=== PATIENT | female | born 1965 | race Caucasian/White ===

== ENCOUNTER 2016-12-07 19:22 | Emergency (ER) | payer OTHER, MEDICARE ==
[~2016-12-07] VITALS: Ht 170.2 cm; Wt 77.1 kg
[~2016-12-07 19:22] MED LIST: BENTYL10 MG PO; CLONAZEPAM2 MG PO; CYCLOBENZAPRINE10 M2 PO; DILAUDID2 M1 PO; DULOXETINE60 MG PO; ESTRADIOL1 MG PO; HYDROMORPHONE HC4 MG PO; MIRALAX17 GM PO; NEXIUM40 M1 PO; ONDANSETRON4 MG PO; PERCOCET 325 MG1 TA2 PO; PERCOCET 325 MG1 TAB PO; PRENATAL PO; REGLAN10 M1 PO; ZALEPLON10 MG PO; ZOFRAN 4 MG TABL4 MG PO; ZOFRAN4 M1 PO; phenergan PO
--- NOTE | 2016-12-07 20:08 | ED GI/GU/ABDOMINAL COMPLAINT ---
History of Present Illness General Chief Complaint: Abdominal Pain/Flank Pain Stated Complaint: ABD PAIN, DISTENTION, +N/V, -BM X3DAYS Source: patient Exam Limitations: no limitations Vital Signs & Intake/Output Vital Signs & Intake/Output Vital Signs Date Time Temp Pulse Resp B/P Pulse O2 O2 Flow FiO2 Ox Delivery Rate 12/07 2145 96.8 87 18 114/76 98 Room Air 12/08 1943 97.2 110 18 158/106 97 Room Air Allergies Coded Allergies: Iodinated Contrast Media - Oral and (IODINATED CONTRAST MEDIA - IV DYE) ( ANAPHYLAXIS 11/24/15) Iodine and Iodide Containing Produc (ANAPHYLAXIS 11/24/15) latex (CAUSED SCAR TISSUE INTERNAL FROM MD USE OF LATEX GLOVES 11/24/15) morphine (HALLUCINATIONS 11/24/15) shellfish derived (ANAPHYLAXIS 11/24/15) Uncoded Allergies: ANTIHISTAMINES (PT REPORTS INTERACTS WITH KLONOPIN; CAUSES SEVERE ANXIETY ) Reconcile Medications Clonazepam 2 MG TABLET 2-3 TAB PO TID anxiety (Reported) 2mg bid and 3mg at bedtime Dicyclomine Hydrochloride (Bentyl) 10 MG CAP 1 TAB PO TID ABD PAIN (Reported) DULOXETINE HCL (Duloxetine) 60 MG CAPSULE.DR 1 TAB PO DAILY DEPRESSION ( Reported) Esomeprazole (Nexium) 40 MG CAPSULE.DR 1 CAP PO DAILY GI (Reported) Estradiol 1 MG TAB 1 MG PO DAILY ESTROGEN REPLACEMENT (Reported) Hydromorphone Hydrochloride (Hydromorphone HCl) 4 MG TAB 4 MG PO Q6H PAIN ( Reported) Metoclopramide HCl (Reglan) 10 MG TABLET 1 TAB PO 4 TIMES/DAY PRN NAUSEA 30 minutes before meals and bedtime ONDANSETRON HCL (Ondansetron HCl) 4 MG TABLET 1 TAB PO Q8H N/V (Reported) Peg 3350/Na Sulf,Bicarb,Cl/KCl (Golytely Solution) 236-22.74G SOLN.RECON 1 BOT PO X1 CONSTIPATION Polyethylene Glycol 3350 (Miralax) 17 GRAM/DOSE POWDER 17 GM PO DAILY STOOL SOFTENER (Reported) mix with water, juice, soda, coffee or tea Promethazine HCl 25 MG TABLET 1 TAB PO Q6P PRN NAUSEA, VOMITING Zaleplon 10 MG CAPSULE 1 TAB PO QPM INSOMMIA (Reported) Triage Note: RECEIVED 51 YO FEMALE WITH HX OF MULTIPLE ABDOMINAL SURGURIES, BOWEL OBSTRUCTIONS, C/O ABDOMINAL DISTENTION X 3 DAYS, NOT PASSING GAS, NAUSEA, VOMITING, ABDOMINAL PAIN. Triage Nurses Notes Reviewed? yes ? N Is pt currently ? No Onset: Gradual Duration: day(s): Timing: recent history Quality/Severity: cramping Location: generalized abdomen Radiation: no radiation Activities at Onset: none Prior Abdominal Problems: similar symptoms Modifying Factors: Worsens With: vomiting. Associated Symptoms: abdominal pain HPI: 51 yo woman h/o ileus, obstruction, h/o prior abdominal surgery, presents with 3 days of abdominal distension, vomiting, nausea. She notes that it feels similar to her prior episodes of obstruction. Last bowel movement 3 days ago. She reports, "I've been dry heaving all day." No fever, chills, dyspnea, chest pain. Past History Travel History Traveled to [place] past 21 day No Medical History Any Pertinent Medical History? 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 No Review of Systems Review of Systems Constitutional: Reports: no symptoms. EENTM: Reports: no symptoms. Respiratory: Reports: no symptoms. Cardiovascular: Reports: no symptoms. GI: Reports: no symptoms. Genitourinary: Reports: no symptoms. Musculoskeletal: Reports: no symptoms. Skin: Reports: no symptoms. Neurological/Psychological: Reports: no symptoms. Hematologic/Endocrine: Reports: no symptoms. Immunologic/Allergic: Reports: no symptoms. All Other Systems: Reviewed and Negative Physical Exam Physical Exam General Appearance: well developed/nourished, moderate distress Head: atraumatic, normal appearance Eyes: Bilateral: normal appearance. Ears, Nose, Throat, Mouth: hearing grossly normal Neck: normal inspection, supple Respiratory: normal breath sounds, chest non-tender, no respiratory distress Cardiovascular: regular rate/rhythm Gastrointestinal: distension, decreased bowel sounds. diffuse tenderness. Back: normal inspection Extremities: normal range of motion Neurologic/Psych: no motor/sensory deficits, awake, alert, oriented x 3 Skin: intact, normal color, warm/dry Core Measures ACS in differential dx? No Severe Sepsis Present: No Septic Shock Present: No Progress Differential Diagnosis: biliary colic, bowel obstruction, diverticulitis Plan of Care: Orders Procedure Date/time Status URINALYSIS 12/07 1936 Complete TROPONIN LEVEL 12/07 1936 Complete LIPASE 12/07 1936 Complete HEPATIC FUNCTION PANEL 12/07 1936 Complete CBC WITHOUT DIFFERENTIAL 12/07 1936 Complete BASIC METABOLIC PANEL 12/07 1936 Complete AMYLASE 12/07 1936 Complete EKG 12/07 1936 Active Current Medications Sig/Brittany Start time Last Medication Dose Stop Time Status Admin Oxycodone/ 2 TAB ONCE ONE 12/07 2244 UNVr Acetaminophen 12/07 2245 (Percocet) Laboratory Tests 12/07/165: Urine Color YEL, Urine Clarity CLEAR, Urine pH 6.0, Ur Specific [place] 1.015, Urine Protein NEG, Urine Ketones NEG, Urine Nitrite NEG, Urine Bilirubin NEG, Urine Urobilinogen 0.2, Ur Leukocyte Esterase TRACE H, Ur Microscopic SEDIMENT EXAMINED, Urine RBC RARE, Urine WBC 3-5 H, Ur Epithelial Cells FEW, Urine Bacteria FEW H, Urine Hemoglobin NEG, Urine Glucose NEG 12/07/16 2020: Anion Gap 12, Estimated GFR > 60, BUN/Creatinine Ratio 28.6 H, Glucose 125 H, Calcium 9.7, Total Bilirubin 0.5, Direct Bilirubin 0.4, AST 124 H, ALT 178 H, Alkaline Phosphatase 148 H, Troponin I < 0.01, Total Protein 7.6, Albumin 4.2, Amylase 82, Lipase 126, CBC w Diff NO MAN DIFF REQ, RBC 4.82, MCV 90.2, MCH 30.8 , RDW 13.5, MPV 8.5, Gran % 56.8, Lymphocytes % 34.2, Monocytes % 5.0, Eosinophils % 1.7, Basophils % 2.3 H, Absolute Granulocytes 6.1, Absolute Lymphocytes 3.7 H, Absolute Monocytes 0.5, Absolute Eosinophils 0.2, Absolute Basophils 0.3, PUBS MCHC 34.2 Diagnostic Imaging: Viewed by Me: CT Scan. Discussed w/RAD: CT Scan. Radiology Impression: abd/pelvic ct... large volume of stool throughout colon Initial ED EKG: normal axis, normal intervals, normal p-waves, normal QRS complex, normal sinus rhythm Comments: PATIENT: CHONG JAIN PRESENT AGE: 51 PATIENT ACCOUNT NO: [id number] : 67 LOCATION: [facility] ORDERING PHYSICIAN: SHERICE CARDENAS MD SERVICE DATE: 12/07/16 EXAM TYPE: CAT - CT ABD & PELVIS W/O IV CONTRAS EXAMINATION: CT ABDOMEN AND PELVIS WITHOUT CONTRAST CLINICAL INFORMATION: Abdominal pain. Abdominal distention. Concern for obstruction. COMPARISON: CT abdomen and pelvis 12/09/2015 TECHNIQUE: Multidetector volumetric imaging was performed from the superior aspect of the liver through the pubic symphysis. Sagittal and coronal reformatted images were obtained on the technologist's workstation. DLP: 761.96 mGy-cm FINDINGS: LUNG BASES: The visualized lung bases are unremarkable. LIVER, GALLBLADDER, AND BILIARY TREE: The liver is normal in size, shape, and attenuation. No focal hepatic lesion or biliary ductal dilatation is present. The gallbladder is unremarkable with no evidence of radiopaque gallstones, gallbladder wall thickening, or obvious pericholecystic inflammatory changes. PANCREAS: Unremarkable. SPLEEN: Unremarkable. ADRENAL GLANDS: Unremarkable. KIDNEYS AND URETERS: The kidneys are normal in size, shape, and attenuation. No hydronephrosis, hydroureter, or calculi seen. No perinephric stranding. BLADDER: Unremarkable. GASTROINTESTINAL TRACT: Surgical suture line of mid small bowel loops. No dilated bowel loop. No evidence of obstruction. Large volume of stool throughout the colon from cecum through pelvis. No bowel wall thickening or edema. ABDOMINAL WALL: Small fat-containing umbilical hernia LYMPH NODES: Normal. VASCULAR: Scattered vascular calcifications of aorta and iliac vessels without aneurysm PELVIC VISCERA: Uterus is absent. Surgical clips along the pelvic sidewall bilateral. No adnexal abnormality. OSSEOUS STRUCTURES: Unremarkable. IMPRESSION: No acute abnormality CT scan abdomen pelvis. No bowel obstruction. Large volume of stool throughout colon. DICTATED BY: LOU RAYMUNDO MD DATE/TIME DICTATED:12/07/162156 AUTOMATION QA LEAD:NIKKIE DATE/TIME TRANSCRIBED:12/07/162156 CONFIDENTIAL, DO NOT COPY WITHOUT APPROPRIATE AUTHORIZATION. <Electronically signed in Other Vendor System> SIGNED BY: LOU RAYMUNDO MD 12/07/16 4129 Departure Departure Disposition: HOME OR SELF CARE Condition: Stable Clinical Impression Primary Impression: Constipation Referrals: GEORGIANA HERNANDEZ,MAGGIE Fritz (PCP/Family) Departure Forms: Customer Survey General Discharge Information Prescriptions: Current Visit Scripts Peg 3350/Na Sulf,Bicarb,Cl/KCl (Golytely Solution) 1 BOT PO X1 #1 BOT Promethazine HCl 1 TAB PO Q6P PRN NAUSEA, VOMITING #30 TAB Ref 1 Comments 12/07/16, 22:47.... discussed at length... ct scan consistent with constipation. no sign of obstruction... likely distension due to lactulose... discussed d/cing lactulose, will give golytely for bowel cleanout. close follow up advised.
[2016-12-07 20:34] LABS: ABSOLUTE BASOPHIL COUNT 0.3 /CUMM (0.0-0.2); ABSOLUTE EOSINOPHIL COUNT 0.2 /CUMM (0.0-0.7); ABSOLUTE GRANULOCYTE CT 6.1 /CUMM (1.4-6.5); ABSOLUTE LYMPH COUNT 3.7 /CUMM (1.2-3.4); ABSOLUTE MONOCYTE COUNT 0.5 /CUMM (0.10-0.60); BASOPHIL % 2.3 % (0.0-2.0); EOSINOPHIL % 1.7 % (0-5); GRANULOCYTE % 56.8 % (42.2-75.2); HEMATOCRIT 43.5 % (37-47); MEAN CORPUSCULAR HGB 30.8 PG (27.0-31.0); MEAN CORPUSCULAR HGB CONC 34.2 G/DL (33.0-37.0); MEAN CORPUSCULAR VOLUME 90.2 FL (81.0-99.0); MEAN PLATELET VOLUME 8.5 FL (7.4-10.4); PLATELET COUNT 292 /CUMM (130-400); RBC DISTRIBUTION WIDTH 13.5 % (11.5-14.5); RED BLOOD CELL CT 4.82 /CUMM (4.20-5.40); WHITE BLOOD CELL COUNT 10.8 /CUMM (4.8-10.8)
--- NOTE | 2016-12-07 22:12 | CT SCAN REPORT ---
EXAMINATION: CT ABDOMEN AND PELVIS WITHOUT CONTRAST CLINICAL INFORMATION: Abdominal pain. Abdominal distention. Concern for obstruction. COMPARISON: CT abdomen and pelvis 12/09/2015 TECHNIQUE: Multidetector volumetric imaging was performed from the superior aspect of the liver through the pubic symphysis. Sagittal and coronal reformatted images were obtained on the technologist's workstation. DLP: 761.96 mGy-cm FINDINGS: LUNG BASES: The visualized lung bases are unremarkable. LIVER, GALLBLADDER, AND BILIARY TREE: The liver is normal in size, shape, and attenuation. No focal hepatic lesion or biliary ductal dilatation is present. The gallbladder is unremarkable with no evidence of radiopaque gallstones, gallbladder wall thickening, or obvious pericholecystic inflammatory changes. PANCREAS: Unremarkable. SPLEEN: Unremarkable. ADRENAL GLANDS: Unremarkable. KIDNEYS AND URETERS: The kidneys are normal in size, shape, and attenuation. No hydronephrosis, hydroureter, or calculi seen. No perinephric stranding. BLADDER: Unremarkable. GASTROINTESTINAL TRACT: Surgical suture line of mid small bowel loops. No dilated bowel loop. No evidence of obstruction. Large volume of stool throughout the colon from cecum through pelvis. No bowel wall thickening or edema. ABDOMINAL WALL: Small fat-containing umbilical hernia LYMPH NODES: Normal. VASCULAR: Scattered vascular calcifications of aorta and iliac vessels without aneurysm PELVIC VISCERA: Uterus is absent. Surgical clips along the pelvic sidewall bilateral. No adnexal abnormality. OSSEOUS STRUCTURES: Unremarkable. IMPRESSION: No acute abnormality CT scan abdomen pelvis. No bowel obstruction. Large volume of stool throughout colon.
[2016-12-07] MEDS ORDERED: PROMETHAZINE HC25 M3 PO (22:46)
[2016-12-07] MEDS ORDERED: GOLYTELY SOLU4000 ML PO (22:46)
[2016-12-07 22:51] VITALS: BP 112/67
== END 2016-12-07 22:57 ==
LOC: ERH 19:22
PROVIDERS: Pediatrics
DX: K59.00 Constipation, unspecified (principal)
CPT/HCPCS: 74176; 81001; 93005; 93010; 96361; 96374; 96375; J2405

== ENCOUNTER 2016-12-30 20:44 | Emergency (ER) | payer OTHER, MEDICARE ==
[~2016-12-30] VITALS: Ht 167.6 cm; Wt 77.1 kg
[~2016-12-30 20:44] MED LIST changes: +GOLYTELY SOLU4000 ML PO; +PROMETHAZINE HC25 M3 PO
--- NOTE | 2016-12-30 21:03 | ED GI/GU/ABDOMINAL COMPLAINT ---
History of Present Illness General Chief Complaint: Abdominal Pain/Flank Pain Stated Complaint: ABD PAIN, N/V/D Source: patient Exam Limitations: no limitations Vital Signs & Intake/Output Vital Signs & Intake/Output Vital Signs Date Time Temp Pulse Resp B/P B/P Pulse O2 O2 Flow FiO2 Mean Ox Delivery Rate 12/30 2046 96.0 94 18 118/65 100 Room Air ED Intake and Output 12/31 0000 12/30 1200 Intake Total 1000 Output Total Balance 1000 Intake, IV 1000 Patient 170 lb Weight Weight Reported by Patient Measurement Method Allergies Coded Allergies: Iodinated Contrast Media - Oral and (IODINATED CONTRAST MEDIA - IV DYE) ( ANAPHYLAXIS 11/24/15) Iodine and Iodide Containing Produc (ANAPHYLAXIS 11/24/15) latex (CAUSED SCAR TISSUE INTERNAL FROM MD USE OF LATEX GLOVES 11/24/15) morphine (HALLUCINATIONS 11/24/15) shellfish derived (ANAPHYLAXIS 11/24/15) Uncoded Allergies: ANTIHISTAMINES (PT REPORTS INTERACTS WITH KLONOPIN; CAUSES SEVERE ANXIETY ) Reconcile Medications Clonazepam 2 MG TABLET 2-3 TAB PO TID anxiety (Reported) 2mg bid and 3mg at bedtime Dicyclomine Hydrochloride (Bentyl) 10 MG CAP 1 TAB PO TID ABD PAIN (Reported) DULOXETINE HCL (Duloxetine) 60 MG CAPSULE.DR 1 TAB PO DAILY DEPRESSION ( Reported) Esomeprazole (Nexium) 40 MG CAPSULE.DR 1 CAP PO DAILY GI (Reported) Estradiol 1 MG TAB 1 MG PO DAILY ESTROGEN REPLACEMENT (Reported) Hydromorphone Hydrochloride (Hydromorphone HCl) 4 MG TAB 4 MG PO Q6H PAIN ( Reported) Metoclopramide HCl (Reglan) 10 MG TABLET 1 TAB PO 4 TIMES/DAY PRN NAUSEA 30 minutes before meals and bedtime ONDANSETRON HCL (Ondansetron HCl) 4 MG TABLET 1 TAB PO Q8H N/V (Reported) Peg 3350/Na Sulf,Bicarb,Cl/KCl (Golytely Solution) 236-22.74G SOLN.RECON 1 BOT PO X1 CONSTIPATION Polyethylene Glycol 3350 (Miralax) 17 GRAM/DOSE POWDER 17 GM PO DAILY STOOL SOFTENER (Reported) mix with water, juice, soda, coffee or tea Promethazine HCl 25 MG TABLET 1 TAB PO Q6P PRN NAUSEA, VOMITING Zaleplon 10 MG CAPSULE 1 TAB PO QPM INSOMMIA (Reported) Triage Note: PT TO ED FOR ABD PAIN X 1 WEEK. PT HAS HX OF SBO'S AND BELIEVES SHE HAS ANOTHER ONE. Triage Nurses Notes Reviewed? yes ? n Is pt currently ? No Onset: Gradual Duration: day(s): Timing: recent history Quality/Severity: cramping Location: generalized abdomen Radiation: no radiation Activities at Onset: none Prior Abdominal Problems: none Modifying Factors: Worsens With: palpation. Associated Symptoms: abdominal pain HPI: 51 yo woman h/o 10 surgeries, s/p hysterectomies, Presents with abdominal pain for the past 1-2 days. She notes abdominal distention and nausea but no vomiting or diarrhea fever or dysuria. She has no chest pain or shortness of breath. She states that this is similar to her prior episode last fall. Past History Travel History Traveled to [place] past 21 day No Medical History Any Pertinent Medical History? 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 No Review of Systems Review of Systems Constitutional: Reports: no symptoms. EENTM: Reports: no symptoms. Respiratory: Reports: no symptoms. Cardiovascular: Reports: no symptoms. GI: Reports: no symptoms. Genitourinary: Reports: no symptoms. Musculoskeletal: Reports: no symptoms. Skin: Reports: no symptoms. Neurological/Psychological: Reports: no symptoms. Hematologic/Endocrine: Reports: no symptoms. Immunologic/Allergic: Reports: no symptoms. All Other Systems: Reviewed and Negative Physical Exam Physical Exam General Appearance: well developed/nourished, mild distress Head: atraumatic, normal appearance Eyes: Bilateral: normal appearance. Ears, Nose, Throat, Mouth: hearing grossly normal Neck: normal inspection, supple, full range of motion Respiratory: normal breath sounds, chest non-tender, no respiratory distress, quiet respiration, lungs clear Cardiovascular: regular rate/rhythm Gastrointestinal: normal bowel sounds, soft, Diffuse upper abdominal tenderness with mild distention. bowel sounds diminished but present. No rebound no guarding. Back: normal inspection Extremities: normal range of motion Neurologic/Psych: no motor/sensory deficits, awake, alert, oriented x 3 Skin: intact, normal color, warm/dry Core Measures ACS in differential dx? No Severe Sepsis Present: No Septic Shock Present: No Progress Differential Diagnosis: sbo vs ileus vs other. Plan of Care: Orders Procedure Date/time Status LACTIC ACID 12/30 2104 Complete TROPONIN LEVEL 12/30 2050 Complete LIPASE 12/30 2050 Complete HEPATIC FUNCTION PANEL 12/30 2050 Complete CBC WITHOUT DIFFERENTIAL 12/30 2050 Complete BASIC METABOLIC PANEL 12/30 2050 Complete AMYLASE 12/30 2050 Complete EKG 12/30 2050 Active Current Medications Sig/Brittany Start time Last Medication Dose Stop Time Status Admin Hydromorphone HCl 2 MG ONCE ONE 12/31 29 UNVr (Dilaudid) 12/31 30 Laboratory Tests 12/31/16 0005: Lactic Acid Cancelled 12/30/162103: Lactic Acid 0.9 12/30/162103: Anion Gap 14, Estimated GFR 53 L, BUN/Creatinine Ratio 22.7, Glucose 89, Calcium 9.8, Total Bilirubin 0.5, Direct Bilirubin 0.3, AST 99 H, ALT 133 H, Alkaline Phosphatase 144 H, Troponin I < 0.01, Total Protein 7.7, Albumin 4.3, Amylase 72, Lipase 84, CBC w Diff NO MAN DIFF REQ, RBC 5.32, MCV 90.6, MCH 30.7, RDW 13.3, MPV 7.9, Gran % 47.9, Lymphocytes % 41.9, Monocytes % 7.5, Eosinophils % 1.5, Basophils % 1.2, Absolute Granulocytes 5.2, Absolute Lymphocytes 4.6 H, Absolute Monocytes 0.8 H, Absolute Eosinophils 0.2, Absolute Basophils 0.1, PUBS MCHC 33.8 Diagnostic Imaging: Viewed by Me: Radiology Read. Discussed w/RAD: Radiology Read. Radiology Impression: 3-WAY... AIR FLUID LEVELS, STOOL IN RIGHT COLON Initial ED EKG: normal axis, normal intervals, normal p-waves, normal QRS complex, normal sinus rhythm Comments: PATIENT: CHONG JAIN PRESENT AGE: 51 PATIENT ACCOUNT NO: [id number] : 67 LOCATION: [facility] [place] ORDERING PHYSICIAN: SHERICE CARDENAS MD SERVICE DATE: 12/30/16 EXAM TYPE: RAD - XRY-ABD MULTI VIEW W/PA CHEST EXAMINATION: XR ABDOMEN WITH PA CHEST CLINICAL INDICATION: Abdominal distention. Evaluate for obstruction. COMPARISON: CT abdomen and pelvis without contrast 12/07/2016. TECHNIQUE: Supine and upright views of the abdomen and pelvis. Single PA view of the chest. FINDINGS: Multiple views of the abdomen and pelvis demonstrate a moderate amount of retained stool throughout the colon, indicative of constipation. There are scattered air-fluid levels within the central abdomen and left hemiabdomen. No free air is identified beneath bilateral hemidiaphragms. No abnormal soft tissue calcifications. No acute osseous abnormality. The lungs are well-expanded and clear without focal airspace consolidation. No pleural effusions or pneumothoraces are identified. Cardiomediastinal contours are within normal limits. Soft tissues are unremarkable. No acute osseous abnormality is identified. IMPRESSION: 1. There is a moderate amount of retained stool within the right hemicolon. There are scattered air-fluid levels within the central abdomen and left hemiabdomen. Consider correlation with contrast-enhanced CT of the abdomen and pelvis. 2. No acute pulmonary process. DICTATED BY: MICAH MCPHERSON MD DATE/TIME DICTATED:12/30/162216 VENEER CLIPPER HELPER:NIKKIE DATE/TIME TRANSCRIBED:12/30/162216 CONFIDENTIAL, DO NOT COPY WITHOUT APPROPRIATE AUTHORIZATION. <Electronically signed in Other Vendor System> SIGNED BY: MICAH MCPHERSON MD 12/30/162222 Departure Departure Disposition: HOME OR SELF CARE Condition: Stable Clinical Impression Primary Impression: Abdominal pain Referrals: GEORGIANA HERNANDEZ,MAGGIE Fritz (PCP/Family) Departure Forms: Customer Survey General Discharge Information Comments 12/31/16, 0:26am... pt feeling better in ED. no vomiting in ED. she declines ct scan... discussed with surgeon and evaluated by PA who notes no need for NG tube... close follow up. pt insistent about going home and will return if her symptoms recur.
[2016-12-30 21:16] LABS: ABSOLUTE BASOPHIL COUNT 0.1 /CUMM (0.0-0.2); ABSOLUTE EOSINOPHIL COUNT 0.2 /CUMM (0.0-0.7); ABSOLUTE GRANULOCYTE CT 5.2 /CUMM (1.4-6.5); ABSOLUTE LYMPH COUNT 4.6 /CUMM (1.2-3.4); ABSOLUTE MONOCYTE COUNT 0.8 /CUMM (0.10-0.60); BASOPHIL % 1.2 % (0.0-2.0); EOSINOPHIL % 1.5 % (0-5); GRANULOCYTE % 47.9 % (42.2-75.2); HEMATOCRIT 48.3 % (37-47); MEAN CORPUSCULAR HGB 30.7 PG (27.0-31.0); MEAN CORPUSCULAR HGB CONC 33.8 G/DL (33.0-37.0); MEAN CORPUSCULAR VOLUME 90.6 FL (81.0-99.0); MEAN PLATELET VOLUME 7.9 FL (7.4-10.4); PLATELET COUNT 346 /CUMM (130-400); RBC DISTRIBUTION WIDTH 13.3 % (11.5-14.5); RED BLOOD CELL CT 5.32 /CUMM (4.20-5.40); WHITE BLOOD CELL COUNT 10.9 /CUMM (4.8-10.8)
--- NOTE | 2016-12-30 22:23 | RADIOLOGY REPORT ---
EXAMINATION: XR ABDOMEN WITH PA CHEST CLINICAL INDICATION: Abdominal distention. Evaluate for obstruction. COMPARISON: CT abdomen and pelvis without contrast 12/07/2016. TECHNIQUE: Supine and upright views of the abdomen and pelvis. Single PA view of the chest. FINDINGS: Multiple views of the abdomen and pelvis demonstrate a moderate amount of retained stool throughout the colon, indicative of constipation. There are scattered air-fluid levels within the central abdomen and left hemiabdomen. No free air is identified beneath bilateral hemidiaphragms. No abnormal soft tissue calcifications. No acute osseous abnormality. The lungs are well-expanded and clear without focal airspace consolidation. No pleural effusions or pneumothoraces are identified. Cardiomediastinal contours are within normal limits. Soft tissues are unremarkable. No acute osseous abnormality is identified. IMPRESSION: 1. There is a moderate amount of retained stool within the right hemicolon. There are scattered air-fluid levels within the central abdomen and left hemiabdomen. Consider correlation with contrast-enhanced CT of the abdomen and pelvis. 2. No acute pulmonary process.
[2016-12-31 00:35] VITALS: BP 110/62
== END 2016-12-31 00:36 ==
LOC: ERH 20:44
PROVIDERS: Pediatrics
DX: R10.84 Generalized abdominal pain (principal)
CPT/HCPCS: 74022; 93005; 93010; 96361; 96374; 96375; 96376; J2405

== ENCOUNTER 2017-02-17 00:05 | Emergency (ER) | payer OTHER, MEDICARE ==
[~2017-02-17] VITALS: Ht 170.2 cm; Wt 77.1 kg
[2017-02-17 00:43] LABS: ABSOLUTE BASOPHIL COUNT 0.1 /CUMM (0.0-0.2); ABSOLUTE EOSINOPHIL COUNT 0.1 /CUMM (0.0-0.7); ABSOLUTE LYMPH COUNT 3.3 /CUMM (1.2-3.4); ABSOLUTE MONOCYTE COUNT 0.6 /CUMM (0.10-0.60); EOSINOPHIL % 1.5 % (0-5); GRANULOCYTE % 54.6 % (42.2-75.2); HEMATOCRIT 48.6 % (37-47); MEAN CORPUSCULAR HGB 30.4 PG (27.0-31.0); MEAN CORPUSCULAR HGB CONC 33.7 G/DL (33.0-37.0); MEAN CORPUSCULAR VOLUME 90.3 FL (81.0-99.0); MEAN PLATELET VOLUME 8.3 FL (7.4-10.4); PLATELET COUNT 281 /CUMM (130-400); RBC DISTRIBUTION WIDTH 14.1 % (11.5-14.5); RED BLOOD CELL CT 5.39 /CUMM (4.20-5.40); WHITE BLOOD CELL COUNT 9.2 /CUMM (4.8-10.8)
--- NOTE | 2017-02-17 00:52 | ED GI/GU/ABDOMINAL COMPLAINT ---
History of Present Illness General Chief Complaint: Abdominal Pain/Flank Pain Stated Complaint: ABD PAIN Source: patient, family, old records Exam Limitations: no limitations Vital Signs & Intake/Output Vital Signs & Intake/Output Vital Signs Date Time Temp Pulse Resp B/P B/P Pulse O2 O2 Flow FiO2 Mean Ox Delivery Rate 02/17 0018 97.0 100 16 123/85 99 Room Air Allergies Coded Allergies: Iodinated Contrast- Oral and IV Dye (IODINATED CONTRAST MEDIA - IV DYE) ( ANAPHYLAXIS 11/24/15) Iodine and Iodide Containing Produc (ANAPHYLAXIS 11/24/15) latex (CAUSED SCAR TISSUE INTERNAL FROM MD USE OF LATEX GLOVES 11/24/15) morphine (HALLUCINATIONS 11/24/15) shellfish derived (ANAPHYLAXIS 11/24/15) Uncoded Allergies: ANTIHISTAMINES (PT REPORTS INTERACTS WITH KLONOPIN; CAUSES SEVERE ANXIETY ) Reconcile Medications Clonazepam 2 MG TABLET 2-3 TAB PO TID anxiety (Reported) 2mg bid and 3mg at bedtime Dicyclomine Hydrochloride (Bentyl) 10 MG CAP 1 TAB PO TID ABD PAIN (Reported) DULOXETINE HCL (Duloxetine) 60 MG CAPSULE.DR 1 TAB PO DAILY DEPRESSION ( Reported) Esomeprazole (Nexium) 40 MG CAPSULE.DR 1 CAP PO DAILY GI (Reported) Estradiol 1 MG TAB 1 MG PO DAILY ESTROGEN REPLACEMENT (Reported) Hydromorphone Hydrochloride (Hydromorphone HCl) 4 MG TAB 4 MG PO Q6H PAIN ( Reported) Metoclopramide HCl (Reglan) 10 MG TABLET 1 TAB PO 4 TIMES/DAY PRN NAUSEA 30 minutes before meals and bedtime ONDANSETRON HCL (Ondansetron HCl) 4 MG TABLET 1 TAB PO Q8H N/V (Reported) Peg 3350/Na Sulf,Bicarb,Cl/KCl (Golytely Solution) 236-22.74G SOLN.RECON 1 BOT PO X1 CONSTIPATION Polyethylene Glycol 3350 (Miralax) 17 GRAM/DOSE POWDER 17 GM PO DAILY STOOL SOFTENER (Reported) mix with water, juice, soda, coffee or tea Promethazine HCl 25 MG TABLET 1 TAB PO Q6P PRN NAUSEA, VOMITING Zaleplon 10 MG CAPSULE 1 TAB PO QPM INSOMMIA (Reported) Triage Note: TRIAGE: C/O FATIGUE, PASSED OUT A FEW HOURS AGO. DENIES CURRENT CP/SOB. C/O MID ABDOMINAL PAIN AND DISTENTION X3 DAYS, LAST BM YESTERDAY AND DIARRHEA. HAS NOT HAD FLATULENCE OR BM SINCE. +N/V LAST VOMITED 5PM. UNABLE TO KEEP FOOD OR FLUIDS DOWN. MULTIPLE ABDOMINAL SURGERIES AND BOWEL OBSTRUCTIONS WITH BOWEL RESECTION. PAIN CURRENTLY 10/10, AFEBRILE. BLUE, SST, LAV, YO, PINK SENT FROM TRIAGE. Triage Nurses Notes Reviewed? yes ? N Is pt currently ? No HPI: Patient presents with a 2 day history of sharp stabbing diffuse abdominal pain. The pain is constant. Positive nausea vomiting. Patient states that she is unable to keep anything down including her medications. No fevers or chills. Patient states similar symptoms multiple times the past. Patient states that she has been diagnosed with gastroparesis as well as an ileus. Patient has had multiple abdominal surgeries. Patient states the pain was so bad today that she actually passed out. Patient denies any chest pain or palpitations. Patient is unsure how Long she had been passed out for. The pain is 10 out of 10. No aggravating or mitigating factors. There is no radiation outside of the abdominal area. The pain is constant. Past History Travel History Traveled to [place] past 21 day No Medical History Any Pertinent Medical History? 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 No Review of Systems Review of Systems Constitutional: Reports: no symptoms. EENTM: Reports: no symptoms. Respiratory: Reports: no symptoms. Cardiovascular: Reports: no symptoms. GI: Reports: see HPI, abdominal pain, nausea, vomiting. Genitourinary: Reports: no symptoms. Musculoskeletal: Reports: no symptoms. Skin: Reports: no symptoms. Neurological/Psychological: Reports: no symptoms. Hematologic/Endocrine: Reports: no symptoms. Immunologic/Allergic: Reports: no symptoms. All Other Systems: Reviewed and Negative Physical Exam Physical Exam General Appearance: well developed/nourished, alert, awake, moderate distress Head: atraumatic, normal appearance Eyes: Bilateral: PERRL, EOMI. Ears, Nose, Throat, Mouth: hearing grossly normal, DRY MUCOSA Neck: normal inspection, supple, full range of motion Respiratory: normal breath sounds, chest non-tender, no respiratory distress, lungs clear Cardiovascular: regular rate/rhythm, normal peripheral pulses Gastrointestinal: normal bowel sounds, soft, tenderness Back: normal inspection, normal range of motion Extremities: normal range of motion Neurologic/Psych: no motor/sensory deficits, awake, alert, oriented x 3, normal gait, normal mood/affect Skin: intact, normal color, warm/dry Core Measures ACS in differential dx? No Severe Sepsis Present: No Septic Shock Present: No Progress Differential Diagnosis: bowel obstruction, gastritis, hepatitis, ischemic bowel, inflamm bowel dis, pancreatitis, SBO Plan of Care: Orders Procedure Date/time Status LACTIC ACID 02/17 0319 Active EKG 02/18 20 Active URINALYSIS 02/17 19 Active LIPASE 02/17 19 Complete LACTIC ACID 02/17 19 Complete COMPREHENSIVE METABOLIC PANEL 02/17 19 Complete CBC WITHOUT DIFFERENTIAL 02/17 19 Complete Current Medications Sig/Brittany Start time Last Medication Dose Stop Time Status Admin Ketorolac 30 MG ONCE ONE 02/17 100 UNVr Tromethamine 02/17 101 (Toradol) Ondansetron HCl 4 MG ONCE ONE 02/17 100 UNVr (Zofran) 02/17 101 Sodium Chloride 1,000 ML BOLUS ONE 02/17 100 UNVr (Normal Saline 0.9%) 02/17 0159 Laboratory Tests 02/17/17 0025: Anion Gap 14, Estimated GFR 59 L, BUN/Creatinine Ratio 23.0, Glucose 92, Lactic Acid 1.0, Calcium 10.2, Total Bilirubin 0.6, AST 77 H, ALT 94 H, Alkaline Phosphatase 135 H, Total Protein 7.7, Albumin 4.4, Globulin 3.3, Albumin/ Globulin Ratio 1.3, Lipase 40, CBC w Diff NO MAN DIFF REQ, RBC 5.39, MCV 90.3, MCH 30.4, RDW 14.1, MPV 8.3, Gran % 54.6, Lymphocytes % 36.2, Monocytes % 6.7, Eosinophils % 1.5, Basophils % 1.0, Absolute Granulocytes 5.0, Absolute Lymphocytes 3.3, Absolute Monocytes 0.6, Absolute Eosinophils 0.1, Absolute Basophils 0.1, PUBS MCHC 33.7 Initial ED EKG: NSR, nonspecific ST T wave chg Prior EKG: unchanged Comments: Patient states that she is not requesting narcotics however she became very agitated when I told that I would not be giving her narcotics. Patient does not want to stay for Toradol and Zofran and fluids. Patient states that she is just coming home. Patient is awake alert and oriented 3. Departure Departure Disposition: ER WALKOUT Condition: Stable Clinical Impression Primary Impression: Abdominal pain Qualifiers: Abdominal location: generalized Qualified Code: R10.84 - Generalized abdominal pain Referrals: GEORGIANA HERNANDEZ,MAGGIE Fritz (PCP/Family) Additional Instructions: RETURN IF SYMPTOMS WORSEN OR FOR ANY CONCERNS Departure Forms: Customer Survey General Discharge Information
[2017-02-17 01:26] VITALS: BP 114/82
== END 2017-02-17 01:26 | disposition admitted as inpatient to this hospital (09) ==
LOC: ERH 00:05
PROVIDERS: Emergency Medicine
DX: R10.84 Generalized abdominal pain (principal)
CPT/HCPCS: 93005; 93010

== ENCOUNTER 2017-02-17 18:54 | Emergency (ER) | payer OTHER, MEDICARE ==
[~2017-02-17] VITALS: Ht 170.2 cm; Wt 77.1 kg
[2017-02-17 19:39] LABS: ABSOLUTE BASOPHIL COUNT 0.1 /CUMM (0.0-0.2); ABSOLUTE EOSINOPHIL COUNT 0.2 /CUMM (0.0-0.7); ABSOLUTE LYMPH COUNT 3.1 /CUMM (1.2-3.4); ABSOLUTE MONOCYTE COUNT 0.6 /CUMM (0.10-0.60); BASOPHIL % 1.2 % (0.0-2.0); EOSINOPHIL % 1.9 % (0-5); GRANULOCYTE % 55.7 % (42.2-75.2); HEMATOCRIT 49.5 % (37-47); MEAN CORPUSCULAR HGB 30.4 PG (27.0-31.0); MEAN CORPUSCULAR HGB CONC 33.6 G/DL (33.0-37.0); MEAN CORPUSCULAR VOLUME 90.5 FL (81.0-99.0); MEAN PLATELET VOLUME 8.1 FL (7.4-10.4); PLATELET COUNT 275 /CUMM (130-400); RBC DISTRIBUTION WIDTH 13.9 % (11.5-14.5); RED BLOOD CELL CT 5.47 /CUMM (4.20-5.40)
--- NOTE | 2017-02-17 21:19 | ED GI/GU/ABDOMINAL COMPLAINT ---
History of Present Illness General Chief Complaint: Abdominal Pain/Flank Pain Stated Complaint: ABDOMINAL PAIN Vital Signs & Intake/Output Vital Signs & Intake/Output Vital Signs Date Time Temp Pulse Resp B/P B/P Pulse O2 O2 Flow FiO2 Mean Ox Delivery Rate 02/17 2121 97.0 95 18 122/74 95 Room Air Room Air 02/18 1912 98.2 93 15 114/75 92 Room Air Room Air Allergies Coded Allergies: Fish Containing Products (Severe, THROAT SWELING, HIVES 02/17/17) Iodinated Contrast- Oral and IV Dye (IODINATED CONTRAST MEDIA - IV DYE) ( ANAPHYLAXIS 02/17/17) Iodine and Iodide Containing Produc (ANAPHYLAXIS 02/17/17) latex (CAUSED SCAR TISSUE INTERNAL FROM MD USE OF LATEX GLOVES 02/17/17) morphine (HALLUCINATIONS 02/17/17) shellfish derived (ANAPHYLAXIS 02/17/17) Uncoded Allergies: ANTIHISTAMINES (PT REPORTS INTERACTS WITH KLONOPIN; CAUSES SEVERE ANXIETY ) Reconcile Medications Clonazepam 2 MG TABLET 2-3 TAB PO TID anxiety (Reported) 2mg bid and 3mg at bedtime Dicyclomine Hydrochloride (Bentyl) 10 MG CAP 1 TAB PO TID ABD PAIN (Reported) DULOXETINE HCL (Duloxetine) 60 MG CAPSULE.DR 1 TAB PO DAILY DEPRESSION ( Reported) Esomeprazole (Nexium) 40 MG CAPSULE.DR 1 CAP PO DAILY GI (Reported) Estradiol 1 MG TAB 1 MG PO DAILY ESTROGEN REPLACEMENT (Reported) Hydromorphone Hydrochloride (Hydromorphone HCl) 4 MG TAB 4 MG PO Q6H PAIN ( Reported) Metoclopramide HCl (Reglan) 10 MG TABLET 1 TAB PO 4 TIMES/DAY PRN NAUSEA 30 minutes before meals and bedtime ONDANSETRON HCL (Ondansetron HCl) 4 MG TABLET 1 TAB PO Q8H N/V (Reported) Peg 3350/Na Sulf,Bicarb,Cl/KCl (Golytely Solution) 236-22.74G SOLN.RECON 1 BOT PO X1 CONSTIPATION Polyethylene Glycol 3350 (Miralax) 17 GRAM/DOSE POWDER 17 GM PO DAILY STOOL SOFTENER (Reported) mix with water, juice, soda, coffee or tea Promethazine HCl 25 MG TABLET 1 TAB PO Q6P PRN NAUSEA, VOMITING Zaleplon 10 MG CAPSULE 1 TAB PO QPM INSOMMIA (Reported) Triage Note: PT TO ED FOR C/C OF ABD PAIN X 3 DAYS. PT VOMITING SINCE YESTERDAY. DENIES DIARRHEA. PER PT, HASN'T VOIDED SINCE LAST NIGHT. REPORTS 2 SYNCOPAL EPISODES TODAY. 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 Surgical History Surgical History: appendectomy, hysterectomy, laparotomy 3 SMALL BOWEL RESECTIONS Psychosocial History Who do you live with Family Services at Home None What is your primary language [place]ican Tobacco Use: Quit >30 days ago ETOH Use: denies use Illicit Drug Use: denies illicit drug use Family History Family History, If Any: Relation not specified for: FHx: breast cancer FHx: lung cancer FHx: lymphoma Progress Plan of Care: Orders Procedure Date/time Status TROPONIN LEVEL 02/17 1910 Complete LIPASE 02/17 1910 Complete HEPATIC FUNCTION PANEL 02/17 1910 Complete HUMAN BETA HCG SCREEN 02/17 1910 Complete CBC WITHOUT DIFFERENTIAL 02/17 1910 Complete BASIC METABOLIC PANEL 02/17 1910 Complete AMYLASE 02/17 1910 Complete EKG 02/17 1910 Active Laboratory Tests 02/17/171916: Anion Gap 14, Estimated GFR > 60, BUN/Creatinine Ratio 25.6 H, Glucose 93, Calcium 9.7, Total Bilirubin 0.8, Direct Bilirubin 0.5 H, AST 102 H, ALT 101 H, Alkaline Phosphatase 128 H, Troponin I < 0.01, Total Protein 8.2, Albumin 4.6, Amylase 53, Lipase 47, Total Beta HCG NEGATIVE, CBC w Diff NO MAN DIFF REQ, RBC 5.47 H, MCV 90.5, MCH 30.4, RDW 13.9, MPV 8.1, Gran % 55.7, Lymphocytes % 34.7, Monocytes % 6.5, Eosinophils % 1.9, Basophils % 1.2, Absolute Granulocytes 5.0, Absolute Lymphocytes 3.1, Absolute Monocytes 0.6, Absolute Eosinophils 0.2, Absolute Basophils 0.1, PUBS MCHC 33.6 Departure Departure Condition: Stable Referrals: GEORGIANA HERNANDEZ,MAGGIE Fritz (PCP/Family) Departure Forms: Customer Survey General Discharge Information
[2017-02-17 21:21] VITALS: BP 122/74
--- NOTE | 2017-02-17 21:30 | ED GI/GU/ABDOMINAL COMPLAINT ---
History of Present Illness General Chief Complaint: Abdominal Pain/Flank Pain Stated Complaint: ABDOMINAL PAIN Source: patient Exam Limitations: no limitations Vital Signs & Intake/Output Vital Signs & Intake/Output Vital Signs Date Time Temp Pulse Resp B/P B/P Pulse O2 O2 Flow FiO2 Mean Ox Delivery Rate 02/17 2121 97.0 95 18 122/74 95 Room Air Room Air 02/17 1912 98.2 93 15 114/75 92 Room Air Room Air ED Intake and Output 02/18 0000 02/17 1200 Intake Total Output Total Balance Patient 170 lb Weight Weight Reported by Patient Measurement Method Allergies Coded Allergies: Fish Containing Products (Severe, THROAT SWELING, HIVES 02/17/17) Iodinated Contrast- Oral and IV Dye (IODINATED CONTRAST MEDIA - IV DYE) ( ANAPHYLAXIS 02/17/17) Iodine and Iodide Containing Produc (ANAPHYLAXIS 02/17/17) latex (CAUSED SCAR TISSUE INTERNAL FROM MD USE OF LATEX GLOVES 02/17/17) morphine (HALLUCINATIONS 02/17/17) shellfish derived (ANAPHYLAXIS 02/17/17) Uncoded Allergies: ANTIHISTAMINES (PT REPORTS INTERACTS WITH KLONOPIN; CAUSES SEVERE ANXIETY ) Reconcile Medications Clonazepam 2 MG TABLET 2-3 TAB PO TID anxiety (Reported) 2mg bid and 3mg at bedtime Dicyclomine Hydrochloride (Bentyl) 10 MG CAP 1 TAB PO TID ABD PAIN (Reported) DULOXETINE HCL (Duloxetine) 60 MG CAPSULE.DR 1 TAB PO DAILY DEPRESSION ( Reported) Esomeprazole (Nexium) 40 MG CAPSULE.DR 1 CAP PO DAILY GI (Reported) Estradiol 1 MG TAB 1 MG PO DAILY ESTROGEN REPLACEMENT (Reported) Hydromorphone Hydrochloride (Hydromorphone HCl) 4 MG TAB 4 MG PO Q6H PAIN ( Reported) Metoclopramide HCl (Reglan) 10 MG TABLET 1 TAB PO 4 TIMES/DAY PRN NAUSEA 30 minutes before meals and bedtime ONDANSETRON HCL (Ondansetron HCl) 4 MG TABLET 1 TAB PO Q8H N/V (Reported) Peg 3350/Na Sulf,Bicarb,Cl/KCl (Golytely Solution) 236-22.74G SOLN.RECON 1 BOT PO X1 CONSTIPATION Polyethylene Glycol 3350 (Miralax) 17 GRAM/DOSE POWDER 17 GM PO DAILY STOOL SOFTENER (Reported) mix with water, juice, soda, coffee or tea Promethazine HCl 25 MG TABLET 1 TAB PO Q6P PRN NAUSEA, VOMITING Zaleplon 10 MG CAPSULE 1 TAB PO QPM INSOMMIA (Reported) Triage Note: PT TO ED FOR C/C OF ABD PAIN X 3 DAYS. PT VOMITING SINCE YESTERDAY. DENIES DIARRHEA. PER PT, HASN'T VOIDED SINCE LAST NIGHT. REPORTS 2 SYNCOPAL EPISODES TODAY. Triage Nurses Notes Reviewed? yes ? n Is pt currently ? No Onset: Gradual Duration: day(s): Timing: recent history Quality/Severity: cramping Location: generalized abdomen Radiation: no radiation Activities at Onset: none Prior Abdominal Problems: similar symptoms Modifying Factors: Worsens With: other (nausea abdominal distention). Associated Symptoms: abdominal pain, nausea/vomiting HPI: 51-year-old woman, history of recurrent abdominal pain, constipation, presents with diffuse abdominal cramping pain, distention, with mild nausea without vomiting. Her last bowel movement was 2 days ago. She has no fever chills chest pain shortness of breath. She notes this is similar to her prior episodes. Past History Travel History Traveled to [place] past 21 day No Medical History Any Pertinent Medical History? 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 No Review of Systems Review of Systems Constitutional: Reports: no symptoms. EENTM: Reports: no symptoms. Respiratory: Reports: no symptoms. Cardiovascular: Reports: no symptoms. GI: Reports: no symptoms. Genitourinary: Reports: no symptoms. Musculoskeletal: Reports: no symptoms. Skin: Reports: no symptoms. Neurological/Psychological: Reports: no symptoms. Hematologic/Endocrine: Reports: no symptoms. Immunologic/Allergic: Reports: no symptoms. All Other Systems: Reviewed and Negative Physical Exam Physical Exam General Appearance: well developed/nourished, mild distress Head: atraumatic, normal appearance Eyes: Bilateral: normal appearance. Ears, Nose, Throat, Mouth: hearing grossly normal Neck: normal inspection, supple, full range of motion Respiratory: normal breath sounds, chest non-tender, no respiratory distress, quiet respiration, lungs clear Cardiovascular: regular rate/rhythm Gastrointestinal: normal bowel sounds, soft, mild distention, nontender to palpation. Positive bowel sounds. Back: normal inspection, normal range of motion Extremities: normal range of motion Neurologic/Psych: no motor/sensory deficits, awake, alert, oriented x 3 Skin: intact, normal color, warm/dry Core Measures ACS in differential dx? No Severe Sepsis Present: No Septic Shock Present: No Progress Differential Diagnosis: ileus versus constipation versus other. Plan of Care: Orders Procedure Date/time Status TROPONIN LEVEL 02/17 1910 Complete LIPASE 02/17 1910 Complete HEPATIC FUNCTION PANEL 02/17 1910 Complete HUMAN BETA HCG SCREEN 02/17 1910 Complete CBC WITHOUT DIFFERENTIAL 02/17 1910 Complete BASIC METABOLIC PANEL 02/17 1910 Complete AMYLASE 02/17 1910 Complete EKG 02/17 1910 Active Laboratory Tests 02/17/171916: Anion Gap 14, Estimated GFR > 60, BUN/Creatinine Ratio 25.6 H, Glucose 93, Calcium 9.7, Total Bilirubin 0.8, Direct Bilirubin 0.5 H, AST 102 H, ALT 101 H, Alkaline Phosphatase 128 H, Troponin I < 0.01, Total Protein 8.2, Albumin 4.6, Amylase 53, Lipase 47, Total Beta HCG NEGATIVE, CBC w Diff NO MAN DIFF REQ, RBC 5.47 H, MCV 90.5, MCH 30.4, RDW 13.9, MPV 8.1, Gran % 55.7, Lymphocytes % 34.7, Monocytes % 6.5, Eosinophils % 1.9, Basophils % 1.2, Absolute Granulocytes 5.0, Absolute Lymphocytes 3.1, Absolute Monocytes 0.6, Absolute Eosinophils 0.2, Absolute Basophils 0.1, PUBS MCHC 33.6 Initial ED EKG: normal axis, normal intervals, normal p-waves, normal QRS complex, normal sinus rhythm Departure Departure Disposition: HOME OR SELF CARE Condition: Stable Clinical Impression Primary Impression: Abdominal pain Secondary Impressions: Constipation Referrals: GEORGIANA HERNANDEZ,MAGGIE Fritz (PCP/Family) Departure Forms: Customer Survey General Discharge Information Comments Abdominal x-rays from 12/30/2016 12/21/2016 revealed only constipation, no small bowel obstruction. Abdomen and pelvic CAT scans on 12/07/2016 also showed only stool and no ileus or obstruction. Scuffs these findings at great length with the patient. All of her blood work done prior ED visits are similar to this evening notable for mild increase in her LFTs. Given her stable labs are stable exam and her stable recent imaging, I believe she likely has recurrence of her constipation. I discussed with her that she should take a gallon of GoLYTELY which she declines. 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
== END 2017-02-17 22:13 ==
LOC: ERH 18:54
PROVIDERS: Pediatrics
DX: K59.00 Constipation, unspecified (principal); R11.0 Nausea
CPT/HCPCS: 93005; 93010; 96372; J1885; J2550